=== PATIENT | female | born 1945 | race Caucasian/White ===

== ENCOUNTER 2017-07-03 02:25 | Emergency (ER) | payer OTHER ==
[2017-07-03 08:02] VITALS: BP 138/72
== END 2017-07-03 08:02 | disposition home or self-care (01) ==
LOC: ED 02:25
DX: M25.561 Pain in right knee (principal); M25.461 Effusion, right knee; I10 Essential (primary) hypertension; E11.9 Type 2 diabetes mellitus without complications; Z79.84 Long term (current) use of oral hypoglycemic drugs
CPT/HCPCS: Q0092